=== PATIENT | female | born 1980 | race Two or more races ===

== ENCOUNTER 2019-02-05 10:15 | Day surgery (SDC) | payer SELFPAY ==
--- NOTE | 2019-02-05 06:44 | HP ---
ADMIT DATE: REFERRING PHYSICIAN: The patient is referred by Dr. Barrett. HISTORY OF PRESENT ILLNESS: She has a mass in the right neck. It causes her difficulty with sleeping and she gets short of breath at night because when she turns, it presses on her windpipe and she cannot breathe. This has been there for a year or two and is enlarging in size. PAST MEDICAL HISTORY: Shows normal childhood diseases. PAST SURGICAL HISTORY: She has never had surgery. ALLERGIES: Has no allergies. MEDICATIONS: Has no diseases to her knowledge and takes no medication. REVIEW OF SYSTEMS: Does show that she has this difficulty sleeping, though she can swallow and breathe otherwise pretty good, but not at night. It scares her and she has to get up sometimes. Otherwise, her review of systems is negative except for 1 patch of hair on the lateral parietal area of the scalp, which she is losing some hair. There is no mass there and I do not know why she is doing that and she will see her primary care about that. SOCIAL HISTORY: Shows that she does not use illicit drugs, smoke or drink. FAMILY HISTORY: Positive in that she has, I think grandmother that had a mass of the neck also. Not certain of the nature or what the mass is due to. PHYSICAL EXAMINATION: GENERAL: Shows an alert female in no acute distress. HEAD, EYES, EARS, NOSE: Grossly normal. NECK: Showed no evidence of mass in the thyroid. The trachea was in midline, but she did have about 8-10 cm mass in the right neck just anterior to the mid and caudad portion of the sternocleidomastoid muscle medially. It is soft and is movable. It did not appear to be attached to underlying structures. The remainder of the neck examination was unremarkable. CHEST: Clear to auscultation bilaterally. HEART: Had normal heart rate of 70 beats per minute, regular, but she did have at the mitral area, small systolic murmur, which was about a 2/4. I did not hear at the aortic area. There was no diastolic murmur. IMPRESSION: Mass of the right neck. ADDENDUM: She did have a CT of the neck, which showed this to be mostly in the subcutaneous tissues. Did not appear to be attached to any of the underlying structures. Did not appear to be a lymph noted nor related to the thyroid gland. It appeared to be in the subcutaneous tissues. CHARLA BLAIR MD DR: GERALDO/celestino JOB#: [id number] / [id number] DEIRDRE
[~2019-02-05 10:15] MED LIST: BUPIVAC MPF-EPI 0.5%-1:200000 30 ML VIAL. ONE; HYDROmorphone 2 MG/ML VIAL IV PRN; IV RINGERS,LACTATED 1000ML 1,000 ML IV SCH; LIDOCAINE 1% PF 2 ML VIAL. ID PRN; MORPHINE SULFATE 2 MG/ML VIAL. IV PRN; ONDANSETRON PF 4 MG/2 ML VIAL. IV PRN; PROCHLORPERAZINE 10 MG/2 ML VIAL. IV PRN; [UNRECOGNIZED DRUG - OTHER] PO; fentaNYL PF VIAL 100 MCG/2 ML VIAL IV PRN
[2019-02-05] MEDS ORDERED: SEVOFLURANE 61 TO 120 MINUTES. IH ONE (10:37)
[2019-02-05] MEDS ORDERED: NEOSTIGMINE METHYLSULFATE 5 MG/5 ML SYRINGE. ONE (10:38)
[2019-02-05] MEDS ORDERED: MIDAZOLAM HCL/PF 2 MG/2 ML VIAL. ONE (10:38)
[2019-02-05] MEDS ORDERED: PROPOFOL 20 ML IV ONE (10:38)
[2019-02-05] MEDS ORDERED: ONDANSETRON PF 4 MG/2 ML VIAL. ONE (10:38)
[2019-02-05] MEDS ORDERED: ROCURONIUM 50 MG/5 ML VIAL. ONE (10:38)
[2019-02-05] MEDS ORDERED: DEXAMETHASONE SOD PHOS 20 MG/5 ML VIAL. ONE (10:38)
[2019-02-05] MEDS ORDERED: fentaNYL PF VIAL 100 MCG/2 ML VIAL ONE ×3 (10:38→14:22)
[2019-02-05] MEDS ORDERED: GLYCOPYRROLATE 1 MG/5 ML VIAL. ONE (10:38)
[2019-02-05] MEDS ORDERED: LIDOCAINE 2% PF 5 ML VIAL. ONE (10:38)
[2019-02-05 11:24] LABS: U PREG PATIENT NEGATIVE (NEG)
[2019-02-05 11:26] LABS: CALCIUM 8.5 mg/dL (8.5-10.1); CREATININE 0.5 mg/dL (0.6-1.0); GFR 138.8; POTASSIUM 3.8 mmol/L (3.5-5.1)
[2019-02-05 11:29] LABS: BASO # 0.1 x10^3/uL (0.0-0.2); BASO % 1 % (0-3); EOS # 0.1 x10^3/uL (0.0-0.7); EOS % 2 % (0-3); HEMATOCRIT 33.8 % (36.0-47.0); HEMOGLOBIN 10.9 g/dL (12.0-15.5); LYMPH # 2.5 x10^3/uL (1.0-4.8); LYMPH % 34 % (24-48); MEAN CORPUSCULAR HEMOGLOBIN 27 pg (25-35); MEAN CORPUSCULAR HGB CONC 32 g/dL (31-37); MEAN CORPUSCULAR VOLUME 85 fL (79-100); MONO # 0.7 x10^3/uL (0.0-1.1); MONO % 10 % (0-9); NEUT % 54 % (31-73); PLATELET COUNT 298 x10^3/uL (140-400); RED CELL DISTRIBUTION WIDTH 16.6 % (11.5-14.5); WHITE BLOOD COUNT 7.4 x10^3/uL (4.0-11.0)
[2019-02-05 11:32] LABS: ALBUMIN 3.3 g/dL (3.4-5.0); ALBUMIN/GLOBULIN RATIO 0.8 (1.0-1.7); TOTAL BILIRUBIN 0.3 mg/dL (0.2-1.0); TOTAL PROTEIN 7.7 g/dL (6.4-8.2)
--- NOTE | 2019-02-05 11:36 | PDOC ---
SURGICAL PROGRESS NOTE Subjective No change in dictated H&P. Vital Signs Vital Signs Date Time Temp Pulse Resp B/P (MAP) Pulse Ox O2 Delivery O2 Flow Rate FiO2 02/05/19 11:10 97.6 72 19 141/92 98 Room Air 97.6 Labs Laboratory Tests Test 02/05/19 10:28 02/05/19 11:00 Urine Test Negative (NEG) Sodium Level 139 mmol/L (136-145) Potassium Level 3.8 mmol/L (3.5-5.1) Chloride Level 105 mmol/L (98-107) Carbon Dioxide Level 25 mmol/L (21-32) Anion Gap 9 (6-14) Blood Urea Nitrogen 10 mg/dL (7-20) Creatinine 0.5 mg/dL (0.6-1.0) Estimated GFR (Cockcroft-Gault) 138.8 BUN/Creatinine Ratio 20 (6-20) Glucose Level 104 mg/dL (70-99) Calcium Level 8.5 mg/dL (8.5-10.1) Laboratory Tests Test 02/05/19 10:28 02/05/19 11:00 Urine Test Negative (NEG) Sodium Level 139 mmol/L (136-145) Potassium Level 3.8 mmol/L (3.5-5.1) Chloride Level 105 mmol/L (98-107) Carbon Dioxide Level 25 mmol/L (21-32) Anion Gap 9 (6-14) Blood Urea Nitrogen 10 mg/dL (7-20) Creatinine 0.5 mg/dL (0.6-1.0) Estimated GFR (Cockcroft-Gault) 138.8 BUN/Creatinine Ratio 20 (6-20) Glucose Level 104 mg/dL (70-99) Calcium Level 8.5 mg/dL (8.5-10.1) CHARLA BLAIR MD Feb 05, 2019 11:36
[2019-02-05 11:41] LABS: PROTHROMBIN TIME PATIENT 13.6 SEC (11.7-14.0)
[2019-02-05] MEDS ORDERED: SUCCINYLCHOLINE 200 MG/10 ML VIAL. ONE (11:41)
--- NOTE | 2019-02-05 11:44 | PDOC ---
SURGICAL PROGRESS NOTE Subjective Op Note: Surgeon...................................Dereje Pre op diag..............................large mass right neck Post op diag............................same Anesthesia.............................general Procedure...............................excision large mass right neck Drains....................................none Fluids....................................see anesthesia sheet Blood loss.............................20 Condition...............................satisfactory Vital Signs Vital Signs Date Time Temp Pulse Resp B/P (MAP) Pulse Ox O2 Delivery O2 Flow Rate FiO2 02/05/19 11:10 97.6 72 19 141/92 98 Room Air 97.6 Labs Laboratory Tests Test 02/05/19 10:28 02/05/19 11:00 Urine Test Negative (NEG) Sodium Level 139 mmol/L (136-145) Potassium Level 3.8 mmol/L (3.5-5.1) Chloride Level 105 mmol/L (98-107) Carbon Dioxide Level 25 mmol/L (21-32) Anion Gap 9 (6-14) Blood Urea Nitrogen 10 mg/dL (7-20) Creatinine 0.5 mg/dL (0.6-1.0) Estimated GFR (Cockcroft-Gault) 138.8 BUN/Creatinine Ratio 20 (6-20) Glucose Level 104 mg/dL (70-99) Calcium Level 8.5 mg/dL (8.5-10.1) Laboratory Tests Test 02/05/19 10:28 02/05/19 11:00 Urine Test Negative (NEG) Sodium Level 139 mmol/L (136-145) Potassium Level 3.8 mmol/L (3.5-5.1) Chloride Level 105 mmol/L (98-107) Carbon Dioxide Level 25 mmol/L (21-32) Anion Gap 9 (6-14) Blood Urea Nitrogen 10 mg/dL (7-20) Creatinine 0.5 mg/dL (0.6-1.0) Estimated GFR (Cockcroft-Gault) 138.8 BUN/Creatinine Ratio 20 (6-20) Glucose Level 104 mg/dL (70-99) Calcium Level 8.5 mg/dL (8.5-10.1) CHARLA BLAIR MD Feb 05, 2019 11:44
[2019-02-05] MEDS: fentaNYL PF VIAL 100 MCG/2 ML VIAL IV PRN ×2 (14:24→14:47)
[2019-02-05] MEDS ORDERED: HYDR-2763 PO (14:59)
[2019-02-05] MEDS ORDERED: HYDROcodone/APAP 7.5/325MG 1 TAB TABLET PO ONE (15:15)
[2019-02-05 15:50] VITALS: BP 124/74
--- NOTE | 2019-02-06 01:41 | OP ---
DATE OF SURGERY: SURGEON: Marquis Blair MD PREOPERATIVE DIAGNOSIS: Large tumor of the right neck. POSTOPERATIVE DIAGNOSIS: Large tumor of the right neck. ANESTHESIA: General. PROCEDURE: Excision of large tumor of neck. TECHNIQUE: Within under general anesthesia, the patient was properly prepped and draped in the routine fashion. The mass was mostly in the subQ, but did not appear to go below the fascia, but was quite large, being about 6-10 cm in size. We made an incision as though we were doing a thyroid incision and carried it not over the midline, but lateral to the neck following the skin line on the right side of the anterior lateral neck. The incision was about 2.5 inches in length. We did this so that we would not have a longitudinal incision, which would be of much less cosmetic result. As such, we used a 15 blade to go in the skin creases and carried it through the skin. We got into the platysma muscle, went through those with cautery down to the mass. The mass was yellowish in color. We divided the small capsule over it and identified the mass. We slowly used finger dissection and Metzenbaum scissors to spread and we slowly pulled the mass out of the very septa that was there. It did extend, it was quite extensive in that it went inferiorly and superiorly and we were very careful not to injure any of the structures around with no major bleeding. We slowly shelled it out as we divided some of the septum. We were able to pull the mass out in total and intact. We then did encounter a very large vessel going to the mass being a few millimeters in size and tied this with 2-0 and 3-0 Vicryl. We then divided it. After we freed the mass up from all the surrounding tissues, we then slowly removed it and sent it to the lab. The resultant defect was inspected. There was no bleeding and as such, the wound was closed. We closed the platysma using interrupted 4-0 Vicryl and closed some of the subQ with the similar suture. The skin was closed with interrupted 6-0 nylon. The procedure was now terminated as sterile dressing was applied. The blood loss was about 10-15 mL. Fluids given can be obtained from the anesthesia sheet. No drains were used and the condition of the patient is satisfactory as she is returned to the recovery room. This was a fairly intense surgery. As we may want to make certain not to injure any intra-abdominal contents, therefore, we took about 2-2-1/2 hours. The procedure was now terminated as stated before, sterile dressing was applied. MARQUIS BLAIR MD DR: GERALDO/celestino JOB#: [id number] / [id number] DEIRDRE
--- NOTE | 2019-02-06 18:06 | PATHOLOGY ---
[facility] Accession Number: [id number] . 01 Material submitted: . RIGHT NECK TUMOR . 01 Clinical history: . R neck mass . 02 Diagnosis: Segments of fibroadipose tissue, right neck tumor: - Lipoma. (JPM:zuleima; 02/06/2019) MBR/02/06/2019 . 02 Comment: There is no evidence of malignancy. (JPM:zuleima; 02/06/2019) . 02 Electronically signed: . Pedrito Barboza MD, Pathologist NPI- [id number] . 01 Gross description: . The specimen is received in formalin, labeled "May-Melo, Angela, right neck tumor" and consists of 2 disrupted segments of yellow-orange lobulated tissue measuring 7.1 x 6.3 x 2.4 cm in aggregate. Sectioning reveals homogeneous yellow-orange cut surfaces and no nodules or mass lesions. Dross Skimmer tissue is submitted in A1-A2. (SD; 02/05/2019) SYU/SYU . 02 Pathologist provided ICD-10: D17.0 . 02 CPT . 489691 Specimen Comment: A courtesy copy of this report has been sent to Specimen Comment: [phone]. Specimen Comment: Report sent to Performed at: 01 [facility] [address], [place] [id number] MD Parag Hobbs MD Phone: [phone] Performed at: 02 [facility] [address], [place] [id number] MD Pedrito Barboza MD Phone: [phone]
== END 2019-02-05 15:50 | disposition home or self-care (01) ==
LOC: SURG 10:15
PROVIDERS: ATTEND Specialist
DX: D17.0 Benign lipomatous neoplasm of skin and subcutaneous tissue of head, face and neck (principal); Z79.899 Other long term (current) drug therapy; Z79.01 Long term (current) use of anticoagulants
CPT/HCPCS: 21554; 36415; 80053; 81025; 85025; 85610; 88305; A7015; J0330; J1100; J2001; J2250; J2405; J2704; J2710; J3010; J3490; J7120